=== PATIENT | female | born 1970 | race Caucasian/White ===

== ENCOUNTER 2021-05-14 16:55 | Emergency (ER) | payer MEDICARE, MEDICAID ==
[~2021-05-14] VITALS: Ht 157.5 cm; Wt 34.0 kg
[2021-05-14] MEDS ORDERED: FLEXERIL PO (18:26)
[2021-05-14] MEDS ORDERED: CIPROFLOXIN HC2.5 M1 OPHTHALMIC (18:26)
[2021-05-14 18:53] VITALS: BP 146/100
== END 2021-05-14 18:54 | disposition home or self-care (01) ==
LOC: M.ERS 16:55
DX: S39.012A Strain of muscle, fascia and tendon of lower back, initial encounter (principal); H10.9 Unspecified conjunctivitis; Z88.8 Allergy status to other drugs, medicaments and biological substances; Z88.6 Allergy status to analgesic agent; W18.39XA Other fall on same level, initial encounter; Y93.89 Activity, other specified; Y92.89 Other specified places as the place of occurrence of the external cause; Y99.8 Other external cause status